=== PATIENT | female | born 1970 | race Hispanic/Latino ===

== ENCOUNTER → 2019-06-12 | Outpatient (CLI) | payer BC ==
[~2019-06-12] MED LIST: GLIP5TAB11 PO; IBUP-2071 PO; LOSARTAN PO; SITA1TAB6 PO; TYL3 PO
== END | disposition home or self-care (01) ==
LOC: RAH 15:22
PROVIDERS: ATTEND Internal Medicine Nephrology
DX: Z12.31 Encounter for screening mammogram for malignant neoplasm of breast (principal)
CPT/HCPCS: 77067

== ENCOUNTER → 2019-07-02 | Outpatient (CLI) | payer BC | END | disposition home or self-care (01) | LOC: RAH 14:52 | PROVIDERS: ATTEND Obstetrics & Gynecology | DX: N60.02 Solitary cyst of left breast (principal); R92.8 Other abnormal and inconclusive findings on diagnostic imaging of breast | CPT/HCPCS: 76641; 77065 ==

== ENCOUNTER → 2022-01-04 | Outpatient (CLI) | payer BC | END | disposition home or self-care (01) | LOC: RAH 08:01 | PROVIDERS: ATTEND Internal Medicine Nephrology | DX: Z12.31 Encounter for screening mammogram for malignant neoplasm of breast (principal) | CPT/HCPCS: 77067 ==

== ENCOUNTER 2024-03-29 07:06 | Day surgery (SDC) | payer BC ==
[2024-03-25 09:40] VITALS: BP 102/47; PULSE 65; RESP 16; TEMP 97.3
[2024-03-25 09:40] LABS: BASOPHILS # (AUTO) 0.03 K/uL (0.00-0.20); BASOPHILS % (AUTO) 0.3 % (0.0-5.0); EOSINOPHILS # (AUTO) 0.23 K/uL (0.00-0.70); EOSINOPHILS % (AUTO) 2.7 % (0.0-8.0); HEMATOCRIT 42.5 % (36-48); IMMATURE GRANULOCYTE ABSOLUTE 0.06 K/uL (0-1); LYMPHOCYTES # (AUTO) 1.9 K/uL (1.0-4.8); LYMPHOCYTES % (AUTO) 21.5 % (21.0-51.0); MEAN CORPUSCULAR HEMOGLOBIN 27.2 pg (27.0-33.0); MEAN CORPUSCULAR HGB CONC 31.5 g/dL (32.0-36.0); MEAN CORPUSCULAR VOLUME 86.4 fL (79-99); MONOCYTES # (AUTO) 0.6 K/uL (0.1-1.0); MONOCYTES % (AUTO) 7.2 % (3.0-13.0); NEUTROPHILS # (AUTO) 5.9 K/uL (1.8-7.7); NEUTROPHILS % (AUTO) 67.6 % (40.0-77.0); PLATELET COUNT (AUTO) 256 K/uL (130-400); RED BLOOD CELL COUNT(AUTO) 4.92 MIL/uL (4.00-5.50); RED CELL DISTRIBUTION WIDTH 13.2 % (11.0-15.5); WHITE BLOOD COUNT (AUTO) 8.7 K/uL (4.8-10.8)
[2024-03-25 09:52] LABS: INR 1.02 (0.85-1.15)
[2024-03-25 09:53] LABS: PARTIAL THROMBOPLASTIN TIME 28.2 SEC (26.3-35.5)
[2024-03-25 10:00] LABS: APPEARANCE,URINE CLEAR (CLEAR); BILIRUBIN,URINE NEGATIVE (NEGATIVE); COLOR,URINE YELLOW (YELLOW); GLUCOSE, URINE (UA) NEGATIVE (NEGATIVE); KETONES,URINE NEGATIVE (NEGATIVE); LEUKOCYTE ESTERASE ,URINE 25 Leu/uL (NEGATIVE); NITRATE,URINE NEGATIVE (NEGATIVE); OCCULT BLOOD,URINE NEGATIVE (NEGATIVE); PH,URINE 7.5 (5.0-8.0); PROTEIN,URINE 10 mg/dL (NEGATIVE)
[2024-03-25 10:05] LABS: ADD UA MICROSCOPIC YES
[2024-03-25 10:06] LABS: CREATININE 0.8 mg/dL (0.5-1.0); POTASSIUM 4.5 mmol/L (3.5-5.1)
[2024-03-25 10:07] LABS: BACTERIA,URINE FEW /HPF (None Seen); MUCUS,URINE RARE LPF (None Seen); RBC,URINE 0-1 /HPF (0-1); SQUAMOUS EPITHELIAL CELL,UR FEW /HPF (0-2)
[2024-03-29] VITALS (17 sets, daily range): BP systolic 129–158; BP diastolic 65–86; PULSE 55–97; RESP 14–18; TEMP 97–97.6
[~2024-03-29] VITALS: Ht 152.4 cm; Wt 89.0 kg
[2024-03-29] MEDS: ceFAZolin SODIUM 2 GM VIAL ONE (06:28)
[~2024-03-29 07:06] MED LIST changes: +FOLIC ACID PO; +GABA-1555 PO; -GLIP5TAB11 PO; -IBUP-2071 PO; -LOSARTAN PO; +METH-812 PO; +PANT40TA54 PO; -SITA1TAB6 PO; +SUCR1TAB2 PO; +SUMA100T16 PO; +TRAMADOL PO; -TYL3 PO; +VIT B12 IM; +VITAMIN D PO
[2024-03-29] MEDS ORDERED: LIDOCAINE PF 100MG/5ML (2%) SYRINGE 5ML ONE (07:27)
[2024-03-29] MEDS ORDERED: rocuRONium bROMide 10MG/1ML 5ML VL ONE ×2 (07:28→09:03)
[2024-03-29] MEDS ORDERED: MIDAZOLAM HCL 1 MG/ML 2ML VIAL ONE (07:28)
[2024-03-29] MEDS ORDERED: proPOFol 10 MG/ML 20ML VIAL IV ONE (07:28)
[2024-03-29] MEDS ORDERED: ondanSETRON 4MG INJ ONE (07:29)
[2024-03-29] MEDS ORDERED: dexaMETHasone SOD PHOSPHATE 4 MG/ML 1ML VIAL ONE (07:29)
[2024-03-29] MEDS ORDERED: FENTanyl CITRate PF 50 MCG/1 ML 2ML VIAL ONE ×2 (07:29→09:03)
[2024-03-29] MEDS ORDERED: GLYCOPYRROLATE 0.2 MG/ML 5 ML VIAL ONE (07:30)
[2024-03-29] MEDS ORDERED: BUPIvacaine/PF 0.5% 30ML VIAL ONE (08:14)
[2024-03-29] MEDS: INDOCYANINE GREEN 25 MG VIAL IJ ONE (08:44)
[2024-03-29] MEDS ORDERED: ROPivacaine 0.5% 5MG/ML 30ML ONE (08:56)
[2024-03-29] MEDS: 0.9%NACL 1000ML 1,000 ML IV ONE (09:35)
[2024-03-29] MEDS: MEPERIDINE-PF 25 MG/ML SYG ONE ×2 (10:28→10:36)
--- NOTE | 2024-03-29 10:43 | OP ---
Operative Note: DATE OF PROCEDURE: 03/29/24 PROCEDURE PERFORMED: Robotic cholecystectomy. PREOPERATIVE DIAGNOSIS: Symptomatic cholelithiasis, POSTOPERATIVE DIAGNOSIS: same ANESTHESIA: General endotracheal. SURGEON: Ivanna Chow MD DEVICE LEFT IN PLACE: None. FLUIDS AND BLOOD PRODUCTS: Per anesthesia report. SPECIMENS REMOVED: Gallbladder. COMPLICATIONS: None immediate. PATIENT CONDITION: Stable. Blood loss: Minimal DESCRIPTION OF PROCEDURE: The patient was brought to the operating room and placed on the operating table in a supine position. Once general endotracheal anesthesia was achieved the patient's abdomen is prepped and draped in sterile fashion. Had then proceeded to create a transverse incision at the left upper quadrant at hernandez's point and under direct visualization went through the abdominal wall with a 5 mm Optiview entered the abdominal cavity and obtain a pneumoperitoneum. After obtaining pneumoperitoneum we placed under direct visualization to 8 mm trocars one in the far right flank and the other one in the right lower abdomen. I then switched out the 5 mm trocar in the left upper quadrant for 8 mm trocar. And then placed another 8 mm trocar in the left hemiabdomen to the left of the midline through the rectus muscle for the camera. Place the patient in reverse Trendelenburg and rotated to the left. Brought the robot over top of the patient right and docked the robot. There was significant amount of adhesions to the gallbladder that were taken down with the cautery with dissection. I then proceeded to retract the gallbladder from the fundus and infundibulum and started our dissection of the hilum. We bluntly dissected the hilum to expose the cystic duct and cystic artery and once we had a critical view for safety, which was confirmed with firefly technology. We proceeded to place two clips in the cystic duct proxi malathi and distally. We divided and then did the same with our cystic artery. We then proceeded to remove the gallbladder off the liver bed using Bovie cautery. Once this was done, we then proceeded to evaluate the liver bed for hemostasis. We made sure there was no bile leaks or any bleeding. I then proceeded to bring the 5 mm Endo-Catch bag through the lateral right port. Placed the gallbladder within the bag and within the bag I proceeded to drain it. We then proceeded to remove the trocar in this area and dilated the muscle with a hemostat and proceeded to remove the gallbladder through this right lateral port. I then closed the muscle with a running 2-0 V lock suture. We then proceeded to undocked our all her instruments and the robot. Removed all the trocars from the abdominal wall confirmed no bleeding. the skin incisions were closed using 4-0 Monocryl running subcuticular fashion and Dermabond. a sterile dressing was applied. The patient tolerated the procedure well. All counts correct x2 at the end of the procedure IVANNA CHOW MD Mar 29, 2024 10:43
--- NOTE | 2024-03-29 11:58 | NUR ---
Patient aox4. Denies c/o pain or discomfort. Surgical Laparoscopic sites clean, dry and intact. Voiced understanding to surgical site precautions and follow up expectations. Ambulated to bathroom with standby assist. Voided large amount of clear urine. PIV discontinued with catheter tip intact. Full and complete Discharge instructions given to Patient and Friend All questions answered. W/C to POV with Friend to Home. Call your doctor if: Severe pain not easily relieved. Fever greater than 101 F. Difficulty breathing. Excessive dizziness. Rash breaks out. Excessive nausea or vomiting. Any other medical problems of your concern. Foul-smelling or unusual drainage to incision/dressing. Excessive bleeding to incision/dressing. Numbness/tingling to affected extremity. Unable to pass urine for more than 6 to 8 hours after discharge. Redness/swelling to the incision site.
[2024-03-29] MEDS ORDERED: acetaMINOPHEN 100 ML ONE (12:05)
== END 2024-03-29 11:50 | disposition home or self-care (01) ==
LOC: DAH 07:06
PROVIDERS: ATTEND Student in an Organized Health Care Education/Training Program
DX: K80.00 Calculus of gallbladder with acute cholecystitis without obstruction (principal); I10 Essential (primary) hypertension; E11.9 Type 2 diabetes mellitus without complications; Z79.01 Long term (current) use of anticoagulants; Z98.890 Other specified postprocedural states; Z98.84 Bariatric surgery status; Z90.710 Acquired absence of both cervix and uterus; Z79.899 Other long term (current) drug therapy
CPT/HCPCS: 80048; 85025; 85610; 85730; 81001; 36415; 47563; 64488; 82948 ×2; 88304; A6260; J1100; A4663; J7030 ×2; J3010 ×2; J3490 ×3; J2003; J2250; J2704; J2405; J0665; J2175 ×2; J2795; J0690 ×2; C1769; A4649; A4930; A4215; A4223; A4221; A4216; A4600; S2900